=== PATIENT | female | born 1965 | race Caucasian/White ===

== ENCOUNTER 2022-08-15 20:12 | Emergency (ER) | payer BC, MEDICAID, SELFPAY ==
[2022-08-15 20:31] VITALS: BP 125/85; PULSE 73; RESP 16; TEMP 36.7; O2SAT 99
--- NOTE | 2022-08-15 20:50 | ED_ITS ---
HPI - Animal Bite General: Chief Complaint: Animal Bite Stated Complaint: rash on back, fatigue Time Seen by Provider: 08/15/22 20:50 History of Present Illness: 56-year-old lady presenting with generalized illness. Notes suspected tick bite with associated targetoid rash. Moderate intensity of symptoms are generalized. Course has persisted. No other specific changes in health, exacerbating, or alleviating factors identified. Onset (ago): day(s) Animal: other Mechanism: bite Location: back Associated symptoms: Reports rash and other Review of Systems General: Reports: 10 or more systems reviewed and unremarkable except in HPI and below Physical Exam Const: COMMON NORMALS: alert GENERAL APPEARANCE: cooperative and well developed HENMT: COMMON NORMALS: normocephalic and atraumatic HEAD & SCALP: normocephalic and atraumatic Eye: COMMON NORMALS: conjunctivae normal CONJUNCTIVA: Yes conjunctivae normal SCLERA: sclerae normal Neck/C-Spine: COMMON NORMALS: supple GENERAL: Yes trachea midline Resp: COMMON NORMALS: normal respiratory effort EFFORT & INSPECTION: Yes able to speak in complete sentences Cardio: COMMON NORMALS: regular rate and regular rhythm RATE: regular rate RHYTHM: regular rhythm GI: COMMON NORMALS: Soft to palpation PALPATION: Yes Soft to palpation and No Tenderness to palpation present (GI) PERCUSSION: normal to percussion Extremity: GENERAL: Yes normal exam except as noted and No edema Neuro: COMMON NORMALS: moves all extremities SENSORIUM/ORIENTATION: Yes alert and No Orientation impaired Skin: NARRATIVE SKIN EXAM: Targetoid rash with central area of suspected prior insect bite. No residual insect. Located on back lower right. Course Vital Signs: Vital signs: Vital Signs Temperature 98.0 F 08/15/22 20:31 Pulse Rate 73 08/15/22 20:31 Respiratory Rate 16 08/15/22 20:31 Blood Pressure 125/85 08/15/22 20:31 Pulse Oximetry 99 08/15/22 20:31 Oxygen Delivery Me thod Room Air 08/15/22 20:31 MDM - Animal Bite Medical Decision Making 56-year-old lady presenting with generalized illness in the context of likely tick bite with targetoid rash. She is nontoxic. Exam as above. Plan to treat for tick bite with Lyme exposure. The results of ED evaluation were discussed with the patient including prescriptions and/or symptomatic cares (if applicable) including appropriate and responsible use, followup plan, and return precautions. The patient verbalized understanding and felt safe for discharge. Medical Records I reviewed the patient's medical records. Lab Data I reviewed the patient's lab results. Discharge Plan Discharge Patient Disposition: Home Clinical Impression: Suspected Lyme disease Condition: Stable Prescriptions: No Action amoxicillin-pot clavulanate 875-125 mg tablet 1 tab PO BID 7 Days Qty: 14 0RF Discharge Orders: Discharge ED (Routine); Ordered 08/15/22 Ordered By: Estrada Key Referrals: Ramone Trejo MD [Primary Care Provider] - Discharge Diet: Usual diet Discharge Activity: Resume usual activity Patient Instructions: Doxycycline (By mouth), Tick Bite (ED), Acute Rash (ED) Activity Restrictions/Additional Instructions: Thank you for visiting the emergency department. You were seen and evaluated for generalized illness with suspected tick bite. Given the appearance of rash and generalized symptoms this may be secondary to Lyme disease. I will prescribe antibiotics. As discussed other conditions may include fungal skin infections, if you do not see improvement with antibiotics over the next few days I suggest topical antifungals which can be obtained [id number]. Please follow-up with your primary care provider. Please ensure that you are staying hydrated. You may use [id number] medications such as acetaminophen and ibuprofen for pain however please do not exceed the daily recommended dosage as listed on the packaging and please keep in mind that many namebrand medications contain the same active ingredients. Please avoid these medications if previously instructed to do so by another physician due to other underlying medical condition. Return to the emergency department for worsening symptoms, any rashes that involve mucous membranes, uncontrolled pain or fevers that do not respond to [id number] medication, severe right upper quadrant abdominal pain or other abdominal pain, bruising under the skin, or anything else that you are concerned about and feel needs emergency department evaluation. Coding Level of Care Code ED Paste Up Copy Camera Operator for José Manuel Tian
== END 2022-08-15 21:13 | disposition home or self-care (01) ==
PROVIDERS: Emergency Provider Emergency Medicine; PCP Family Medicine
DX: R21 Rash and other nonspecific skin eruption (principal); W57.XXXA Bitten or stung by nonvenomous insect and other nonvenomous arthropods, initial encounter
CPT/HCPCS: 99283

== ENCOUNTER → 2022-09-22 13:57 | Outpatient (BNVA) | payer BC, MEDICAID, SELFPAY | PROVIDERS: PCP Family Medicine; Visit Provider Family Medicine | DX: M13.0 Polyarthritis, unspecified (principal); A69.20 Lyme disease, unspecified | CPT/HCPCS: 80053; 80061; 84439; 84443; 85025; 85651; 86140; 86618; 86666; 86757 ==

== ENCOUNTER 2022-11-26 10:02 | Outpatient (CLI) | payer BC, MEDICAID, SELFPAY ==
--- NOTE | 2022-11-26 10:09 | MM_ITS ---
WS: [id number] BILATERAL SCREENING DIGITAL TOMOSYNTHESIS MAMMOGRAM WITH CAD HISTORY: screening COMPARISON: None available. Bilateral CC and MLO views with tomosynthesis and synthetic mammography submitted. Computer aided det ection analyzed. Breast composition: There are scattered areas of fibroglandular density. No suspicious masses, microc alcifications or architectural distortion. Benign calcification posterior medial RIGHT breast. IMPRESSION: MM/[place] [id number] BI-RADS: 2-Benign FOLLOW UP: 1 Year Follow-up
== END 2022-11-26 10:03 | disposition home or self-care (01) ==
LOC: RAD 10:04
PROVIDERS: PCP Family Medicine; Visit Provider Family Medicine
DX: Z12.31 Encounter for screening mammogram for malignant neoplasm of breast (principal)
CPT/HCPCS: 77063; 77067; 80053; 80061; 84439; 84443; 85025; 85651; 86140; 86618; 86666; 86757

== ENCOUNTER → 2023-01-20 09:45 | Outpatient (BNVA) | payer BC, MEDICAID, SELFPAY | PROVIDERS: PCP Family Medicine; Visit Provider Nurse Practitioner Women's Health | DX: Z20.2 Contact with and (suspected) exposure to infections with a predominantly sexual mode of transmission (principal); Z01.419 Encounter for gynecological examination (general) (routine) without abnormal findings; Z11.3 Encounter for screening for infections with a predominantly sexual mode of transmission | CPT/HCPCS: 80074; 82670; 83001; 83002; 87491; 87591; 87806 ==

== ENCOUNTER → 2023-02-02 10:29 | Outpatient (BNVA) | payer BC, MEDICAID, SELFPAY | PROVIDERS: PCP Family Medicine; Visit Provider Nurse Practitioner Women's Health | DX: R10.2 Pelvic and perineal pain (principal); Z90.710 Acquired absence of both cervix and uterus | CPT/HCPCS: 76830 ==

== ENCOUNTER → 2023-11-12 10:20 | Outpatient (BNVA) | payer BC, MEDICAID, SELFPAY | PROVIDERS: PCP Family Medicine; Visit Provider Nurse Practitioner Family | DX: J02.9 Acute pharyngitis, unspecified (principal) | CPT/HCPCS: 87880 ==

== ENCOUNTER → 2023-12-11 11:46 | Outpatient (BNVA) | payer BC, MEDICAID, SELFPAY | PROVIDERS: PCP Family Medicine; Visit Provider Family Medicine | DX: M13.0 Polyarthritis, unspecified (principal) | CPT/HCPCS: 80053; 80061; 84443; 85025 ==